=== PATIENT | female | born 1995 | race Caucasian/White ===

== ENCOUNTER 2022-03-20 11:23 | Day surgery (SDC) | payer OTHER ==
[2022-03-20] MEDS ORDERED: LIDOCAINE HCL 2% 100 MG/5 ML IJ ONE (11:24)
[2022-03-20] MEDS ORDERED: DIPRIVAN 200 MG/20 ML IV ONE (12:26)
--- NOTE | 2022-03-20 13:35 | XRAY ---
Indication: Right C2-C4 MBB. Intraoperative fluoroscopy provided for 15 seconds. 2 digital spot images submitted for interpretation demonstrates posterior needle tips projecting over the expected right C2-C4 nerve roots. Correlate with intraoperative findings/report.
--- NOTE | 2022-03-20 13:37 | XRAY ---
15 seconds of fluoroscopy was used in surgery for a right C2-C4 MBB.
[2022-03-20] MEDS ORDERED: Lactated Ringers 1,000 ML IV ONE (14:03)
== END 2022-03-20 12:56 | disposition home or self-care (01) ==
LOC: SDC-PAIN 11:23
PROVIDERS: ATTEND Psychiatry & Neurology Pain Medicine
DX: M47.812 Spondylosis without myelopathy or radiculopathy, cervical region (principal); Z79.899 Other long term (current) drug therapy
CPT/HCPCS: 64490; 64491; 72040; 77002; J2704